=== PATIENT | female | born 1970 | race Asian ===

== ENCOUNTER 2017-01-20 23:01 | Emergency (ER) | payer MEDICAID ==
[~2017-01-20] VITALS: Ht 160 cm; Wt 61.2 kg
[2017-01-21 01:31] VITALS: BP 127/74
== END 2017-01-21 01:31 | disposition home or self-care (01) ==
LOC: ED 23:01
DX: L50.9 Urticaria, unspecified (principal); T78.40XA Allergy, unspecified, initial encounter; X58.XXXA Exposure to other specified factors, initial encounter
CPT/HCPCS: J0171; J2930

== ENCOUNTER 2018-04-26 01:03 | Emergency (ER) | payer OTHER ==
[~2018-04-26] VITALS: Ht 160 cm; Wt 55.8 kg
[2018-04-26 01:14] VITALS: Ht 160 cm; Wt 55.8 kg
[2018-04-26 02:21] LABS: BASOPHIL % 0.9 % (0-2); PLATELET COUNT 198 x10^3mcL (130-400); RED CELL DISTRIBUTION WIDTH 12.6 % (11.5-14.5)
[2018-04-26 02:27] LABS: CALCIUM 8.3 mg/dL (8.5-10.1); CARBON DIOXIDE 30.1 mmol/L (21-32); CHLORIDE SERUM 104 mmol/L (98-107); CREATININE SERUM 0.7 mg/dL (0.6-1.0); GFR1 > 60 mL/min; GLUCOSE SERUM 133 mg/dL (74-106); POTASSIUM SERUM 3.6 mmol/L (3.5-5.1); SODIUM SERUM 140 mmol/L (136-145)
[2018-04-26 02:36] LABS: ALKALINE PHOSPHATASE 71 U/L (46-116); ALT/SGPT 32 U/L (14-59); AST/SGOT 25 U/L (15-37); BILIRUBIN TOTAL 0.2 mg/dL (0.20-1.00); HDL CHOLESTEROL 40 mg/dL (40-60); LIPASE 178 IU/L (73-393); TRIGLYCERIDES 124 mg/dL (<150)
[2018-04-26 02:38] LABS: ALBUMIN 3.2 g/dL (3.4-5.0); CHOLESTEROL 103 mg/dL (<200); CHOLESTEROL/HDL RATIO 2.6
[2018-04-26 02:45] LABS: T3 TOTAL 1.35 ng/mL
[2018-04-26 02:50] LABS: FREE T4 1.16 ng/dL (0.76-1.46); T4(THYROXINE) 8.7 ug/dL (4.7-13.3)
[2018-04-26 02:54] VITALS: BP 116/64
== END 2018-04-26 03:05 | disposition home or self-care (01) ==
LOC: ED 01:03
PROVIDERS: Specialist
DX: F41.9 Anxiety disorder, unspecified (principal); G47.00 Insomnia, unspecified; F17.203 Nicotine dependence unspecified, with withdrawal
CPT/HCPCS: 36415; 83880; 84439; Q0092

== ENCOUNTER 2018-05-06 14:06 | Emergency (ER) | payer OTHER ==
[~2018-05-06] VITALS: Ht 160 cm; Wt 56.7 kg
[2018-05-06 14:08] VITALS: BP 117/66
== END 2018-05-06 15:48 | disposition left against medical advice (07) ==
LOC: ED 14:06
DX: Z53.21 Procedure and treatment not carried out due to patient leaving prior to being seen by health care provider (principal)